=== PATIENT | female | born 1980 | race Hispanic/Latino ===

== ENCOUNTER 2019-10-28 18:08 | Inpatient (IN) | payer OTHER ==
[2019-10-28 19:10] VITALS: BMI 38.3
[2019-10-28] MEDS ORDERED: hydrALAZINE 20 MG/ML VIAL ONE (19:15)
[2019-10-28] MEDS ORDERED: Acetaminophen 500 MG TAB PO PRN (19:19)
[2019-10-28] MEDS ORDERED: hydrALAZINE 20 MG/ML VIAL SLOW IVP PRN ×2 (19:19→19:22)
[2019-10-28] MEDS ORDERED: Calcium Gluc 4.6 MEQ/10 ML (100 MG/ML) SLOW IVP PRN (19:19)
[2019-10-28] MEDS ORDERED: Ondansetron PF 4 MG/2 ML Vial IVP PRN (19:19)
[2019-10-28] MEDS ORDERED: Magnesium Sulfate 20 GM/WATER 500 ML BAG IVPB SCH (19:30)
[2019-10-28] MEDS ORDERED: Meclizine HCl 12.5 MG TAB PO PRN (19:38)
[2019-10-28 19:42] LABS: Hemoglobin 12.5 g/dL (12.0-16.0); Mean Corpuscular HGB CONC 35.2 g/dL (32.0-36.0); Mean Corpuscular Hemoglobin 30.3 pg (27.0-31.0); Mean Corpuscular Volume 85.9 fL (78.0-98.0); Mean Platelet Volume 9.5 fL (7.4-10.4); Platelet Count 224 thou/uL (130-400); RBC Distribution Width 14.2 % (11.5-14.5); Red Blood Cell (RBC) Count 4.15 mill/uL (4.20-5.40); White Blood Cell (WBC) Count 12.6 thou/uL (4.8-10.8)
[2019-10-28] MEDS: hydrALAZINE 20 MG/ML VIAL SLOW IVP PRN ×2 (19:44→20:08)
[2019-10-28] MEDS: Betamet Acet/Betamet Na Ph 30 MG/5 ML VIAL IM SCH (19:53)
[2019-10-28 20:03] LABS: ALT (SGPT) 10 U/L (8-55); AST (SGOT) 16 U/L (5-34); Albumin 3.2 g/dL (3.5-5.0); Alkaline Phosphatase 177 U/L (40-110); Anion Gap 16 mmol/L (10-20); BUN (Urea Nitrogen) 13 mg/dL (7.0-18.7); Bilirubin, Total 0.2 mg/dL (0.2-1.2); Calc. Creatinine Clearance 170 mL/min (70-130); Calcium 9.5 mg/dL (7.8-10.44); Carbon Dioxide 18 mmol/L (22-29); Chloride 109 mmol/L (98-107); Estimated GFR-MDRD Greater than 90; Globulin 3.7 g/dL (2.4-3.5); Glucose 110 mg/dL (70-105); Protein, Total 6.9 g/dL (6.0-8.3); Sodium 139 mmol/L (136-145)
[2019-10-28 20:18] LABS: Amphetamine Not Detected (NotDetected); Barbiturates Screen Not Detected (NotDetected); Benzodiazepine Screen Not Detected (NotDetected); Cocaine Metabolite Screen Not Detected (NotDetected); Medtox Control Line Valid? VALID (VALID); Medtox Reader # READER 1; Methadone Not Detected (NotDetected); Methamphetamine Not Detected (NotDetected); Opiate Screen Not Detected (NotDetected); Oxycodone Screen Not Detected (NotDetected); Phencyclidine (PCP) Not Detected (NotDetected); THC/Cannabinoid Screen Not Detected (NotDetected); Tricyclic Screen Not Detected (NotDetected)
[2019-10-28 20:21] LABS: HBSAg Index 0.15 S/CO (0-0.99); Hep B Surf Ag Non-Reactive S/CO (NonReactive); Syphilis Antibody Nonreactive (Nonreactive); Syphilis Antibody Index 0.03 S/CO (<1.00 Non-Reactive)
[2019-10-28] MEDS ORDERED: hydrALAZINE 20 MG/ML VIAL SLOW IVP SCH (20:30)
[2019-10-28] MEDS ORDERED: Labetalol HCl 100 MG/20 ML VIAL SLOW IVP SCH (20:30)
[2019-10-28] MEDS ORDERED: Labetalol HCl 100 MG/20 ML VIAL ONE (20:35)
[2019-10-28] MEDS: Labetalol HCl 100 MG/20 ML VIAL SLOW IVP SCH (22:01)
--- NOTE | 2019-10-28 22:23 | ULT ---
Exam: Limited OB ultrasound HISTORY: Evaluate for weight, presentation and amniotic fluid index TECHNIQUE: Limited OB ultrasound was performed FINDINGS: Presentation: Vertex heart tones: 139 bpm Amniotic fluid index: 21.5 cm Placenta: Anterior Cervix: 4.9 cm. No evidence of previa biometry: BPD 8.55 cm, 34 weeks 3 days Head circumference 30.81 cm, 34 weeks 3 days Abdominal circumference 29.49 cm, 33 weeks 2 days Femur length 6.36 cm, 32 weeks 2 days Estimated weight is 2260 g +/- 326 g Average age by sonography is 33 weeks 6 days IMPRESSION: 1. Single intrauterine gestation. Positive heart tones. Average age by sonography is 33 weeks 6 days. 2. Estimated weight is 2206 g +/- 326 g 3. Amniotic fluid index 21.5 cm. 4. Vertex presentation
[2019-10-28] MEDS ORDERED: Labetalol 100 MG TAB PO SCH (22:45)
[2019-10-28] MEDS: busPIRone HCl 10 MG TAB PO SCH (22:55)
[2019-10-29] MEDS: Magnesium Sulfate 20 gm/500 ml 20 GM/500 ML BAG IVPB SCH ×2 (04:34→14:10)
--- NOTE | 2019-10-29 07:43 | HP ---
PRIMARY OB: Dr. Jefry Gibson. CHIEF COMPLAINT: Elevated blood pressures. HISTORY OF PRESENT ILLNESS: The patient is a 39-year-old, G5, P3 female with an intrauterine at 33 weeks and 4 days, presenting to Labor and Delivery with elevated blood pressures from clinic. She denies headache, chest pain, or shortness of breath. She has some nausea that has been present with the . Denies any new rashes, hip problems, abdominal pain, vaginal bleeding, leakage of fluid, urinary urgency or frequency. She denies hip pains or muscle weakness. The patient reports that she has had preeclampsia with her last two or three deliveries requiring delivery at 34 and 36 weeks. PAST MEDICAL HISTORY: Negative. PAST SURGICAL HISTORY: She has had three prior C-sections. ALLERGIES: NO KNOWN DRUG ALLERGIES. MEDICATIONS: 1. vitamins. 2. Sertraline 100 mg daily. 3. BuSpar 10 mg in the morning. 4. Meclizine 25 mg daily. 5. Low-dose aspirin. OB LABS: Blood type is A positive. Antibody screen is negative. Hepatitis B surface antigen is negative. HIV is nonreactive in the 1st and 3rd trimester. She is rubella immune. REVIEW OF SYSTEMS: Per HPI. PHYSICAL EXAMINATION: VITAL SIGNS: Initial blood pressure on presentation 176/84, heart rate of 78, saturating 98% on room air, temperature 98.7. GENERAL: She appears to be in no acute distress. She is alert, oriented, cooperative, and pleasant to interact with. HEAD: Normocephalic, atraumatic. LUNGS: Clear to auscultation bilaterally. HEART: Has a regular rate and rhythm. ABDOMEN: Gravid, soft, nontender. EXTREMITIES: Nontender with minimal edema. She has two beats of clonus with DTRs. : Has been deferred. heart tracing shows the fetus with a baseline in the 150s with moderate long-term variability, positive 15 x 15 accelerations, no decelerations. Contractions are present and seem to be occurring about every 3 to 5 minutes, but not felt by the patient. The patient required a total of 25 of hydralazine and 100 of labetalol IV. She was also started on 30 mg of Procardia XL and was given 100 of labetalol p.o. since her admission. Blood pressures finally after repetitive dosing came down into the mild range after approximately 2-1/2 hours requiring an additional IV dose once since that time in addition to the p.o. medications. LABORATORY FINDINGS: White count is 12.6, hemoglobin is 12.5, hematocrit 35.6, and platelets of 224,000. Sodium 139, creatinine 0.6, glucose of 110, AST of 16, ALT of 10. Urine protein of 70. Drug screen negative. Ultrasound shows a fetus in vertex presentation, appropriate size for gestational age with an estimated weight of 2206 g, and the SAMANTHA of 21. ASSESSMENT AND PLAN: The patient is a 39-year-old female with an intrauterine at 33 weeks and 4 days with evidence of preeclampsia with severe features by blood pressure and proteinuria. The patient has required multiple IV medications for control of her blood pressure. It has now consistently been in the mild range. She is on magnesium for seizure prophylaxis and has been given betamethasone for lung maturity. Should we be able to continue with maintaining blood pressures in the appropriate range and with intolerance, I will anticipate a after 48 hours of the first dose. Dr. Gibson, her primary physician will be the managing physician. Fetus has a category 1 tracing. Job ID: [id number]
--- NOTE | 2019-10-29 08:15 | PDOC.LDPN ---
Labor & Delivery Progress Note - Subjective Subjective: comfortable - Objective Vital signs reviewed and normal: yes (normal to mild range BP) General: NAD, resting FHT: category 1 - Assessment (1) Preeclampsia Code(s): O14.90 - UNSPECIFIED PRE-ECLAMPSIA, UNSPECIFIED TRIMESTER Current Visit: Yes Status: Acute (2) Previous section Code(s): Z98.891 - HISTORY OF UTERINE SCAR FROM PREVIOUS SURGERY Current Visit : Yes Status: Acute (3) Advanced maternal age (AMA), 40 years or greater Code(s): SGT0957 - Current Visit: Yes Status: Acute Plan: continue plan of care -: A/P: 39yo w previous CS x 3, last 2 CS for severe preeclampsia- presented yesterday w severe range BP< on Magnesium now, Celestone x 1 given last night, 2nd dose pending today. Labs ordered for AM review pending. Discussed continue magnesium at this time. We discussed CS prior to 48 steroid benefit if worsening disease noted prior/IV antihypertensives needed again.
[2019-10-29] MEDS ORDERED: Labetalol 100 MG TAB PO SCH (09:00)
[2019-10-29 09:48] LABS: #Lymphocytes 1.6 thou/uL (1.20-3.40); #Monocytes 0.4 thou/uL (0.11-0.59); #Neutrophils 13.9 thou/uL (1.40-6.50); %Basophils 0.3 % (0.0-1.0); %Eosinophils 0.1 % (0.0-10.0); %Lymphocytes 9.9 % (21.0-51.0); %Monocytes 2.5 % (0.0-10.0); %Neutrophils 87.3 % (42.0-75.0); Hemoglobin 11.6 g/dL (12.0-16.0); Mean Corpuscular Hemoglobin 29.9 pg (27.0-31.0); Mean Corpuscular Volume 87.8 fL (78.0-98.0); Mean Platelet Volume 9.1 fL (7.4-10.4); Platelet Count 218 thou/uL (130-400); RBC Distribution Width 14.2 % (11.5-14.5); Red Blood Cell (RBC) Count 3.87 mill/uL (4.20-5.40)
[2019-10-29] MEDS: busPIRone HCl 5 MG TAB PO SCH (09:52)
[2019-10-29 10:13] LABS: ALT (SGPT) 9 U/L (8-55); AST (SGOT) 14 U/L (5-34); Alkaline Phosphatase 165 U/L (40-110); Anion Gap 14 mmol/L (10-20); BUN (Urea Nitrogen) 11 mg/dL (7.0-18.7); Bilirubin, Total 0.3 mg/dL (0.2-1.2); Calc. Creatinine Clearance 167 mL/min (70-130); Calcium 7.8 mg/dL (7.8-10.44); Carbon Dioxide 15 mmol/L (22-29); Chloride 107 mmol/L (98-107); Estimated GFR-MDRD Greater than 90; Globulin 3.3 g/dL (2.4-3.5); Glucose 154 mg/dL (70-105); Magnesium 5.1 mg/dL (1.6-2.6); Potassium 3.9 mmol/L (3.5-5.1); Protein, Total 6.3 g/dL (6.0-8.3); Sodium 132 mmol/L (136-145)
[2019-10-29] MEDS ORDERED: Meclizine HCl 12.5 MG TAB PO SCH (10:30)
--- NOTE | 2019-10-29 12:46 | PDOC.LDPN ---
Labor & Delivery Progress Note - Subjective Subjective: comfortable - Objective Vital signs reviewed and normal: yes General: NAD, resting FHT: category 1 - Assessment (1) Preeclampsia Code(s): O14.90 - UNSPECIFIED PRE-ECLAMPSIA, UNSPECIFIED TRIMESTER Current Visit: Yes Status: Acute (2) Previous section Code(s): Z98.891 - HISTORY OF UTERINE SCAR FROM PREVIOUS SURGERY Current Visit : Yes Status: Acute (3) Advanced maternal age (AMA), 40 years or greater Code(s): [id number] - Current Visit: Yes Status: Acute -: HD2 severe preeclampsia @ 33.4 weeks. Pt with BP stablized. Will continue magnesium through 24hours and will consider stopping magnesium with 2nd dose of celestone later this evening. If BP noted severe range after cessation of magnesium will move to delivery.
[2019-10-29 13:26] LABS: SARS-CoV-2 MS2 Positive; SARS-CoV-2 N Gene Negative; SARS-CoV-2 S Gene Negative; SARS-CoV-2 by NAA Not Detected (NotDetected); SARS-CoV-2 orf1ab Negative
[2019-10-29] MEDS: Betamet Acet/Betamet Na Ph 30 MG/5 ML VIAL IM SCH (19:53)
[2019-10-29] MEDS ORDERED: NIFEdipine XL 60 MG TAB PO SCH (21:00)
[2019-10-29] MEDS: busPIRone HCl 10 MG TAB PO SCH (21:51)
[2019-10-30] MEDS: NIFEdipine XL 30 MG TAB PO SCH ×2 (06:25→21:25)
[2019-10-30] MEDS ORDERED: Meclizine HCl 25 MG TAB PO SCH (09:00)
--- NOTE | 2019-10-30 10:07 | PDOC.LDPN ---
Labor & Delivery Progress Note - Subjective Subjective: comfortable, other (no HANKINS, TRANSPLANT REGISTERED NURSE sx or RUQ pain, good FM) - Objective Vital signs reviewed and normal: yes Abnormal vital signs: normal to mild range BP, no severe BP since mag was DC last night General: NAD, resting Other exam findings: reactive NST - Assessment (1) Preeclampsia Code(s): O14.90 - UNSPECIFIED PRE-ECLAMPSIA, UNSPECIFIED TRIMESTER Current Visit: Yes Status: Acute (2) Previous section Code(s): Z98.891 - HISTORY OF UTERINE SCAR FROM PREVIOUS SURGERY Current Visit : Yes Status: Acute (3) Advanced maternal age (AMA), 40 years or greater Code(s): [id number] - Current Visit: Yes Status: Acute Plan: continue plan of care -: A/P: 33.5 weeks, previous CS x 3 with strong PMHX of severe preeclampsia who presented w severe features on 10/27. Pt stablized w IV meds and magnesium sulfate. Magnesium was turned off at 1999 last night, she has continued to have normal to mild range BP with no TRANSPLANT REGISTERED NURSE sx. She will be 48 hours at steroid [facility] at 1999. Plan to continue close BP monitoring through 34 weeks in patient. If BP remain normal/mild range will plan for DC home and close FU/antepartum surveillance. If severe BP or features will deliver via RCS.
[2019-10-30] MEDS: busPIRone HCl 5 MG TAB PO SCH (11:16)
[2019-10-30] MEDS: Meclizine HCl 25 MG TAB PO SCH (11:16)
[2019-10-30] MEDS ORDERED: Calcium Gluc 4.6 MEQ/10 ML (100 MG/ML) SLOW IVP PRN (13:53)
[2019-10-30] MEDS ORDERED: Magnesium Sulfate 20 gm/500 ml 20 GM/500 ML BAG IVPB SCH (14:00)
[2019-10-30] MEDS ORDERED: Magnesium Sulfate 20 GM/WATER 500 ML BAG IVPB SCH (14:00)
[2019-10-30] MEDS ORDERED: Bicitra 30 ML UDCUP PO SCH (14:00)
[2019-10-30] MEDS: Labetalol HCl 100 MG/20 ML VIAL SLOW IVP SCH ×5 (14:00→17:14)
[2019-10-30] MEDS ORDERED: CEFAZOLIN 2 GM in Premix Bag 1 BAG IVPB SCH (14:00)
[2019-10-30] MEDS ORDERED: Ketorolac Tromethamine 30 MG/ML VIAL ONE (14:11)
[2019-10-30] MEDS ORDERED: Ondansetron PF 4 MG/2 ML Vial ONE (14:11)
[2019-10-30] MEDS ORDERED: Dexamethasone 4 mg/ml Vial ONE (14:11)
[2019-10-30] MEDS ORDERED: PHENYLEPHRINE-NS 100 MCG/ML 10 ML SYRINGE ONE (14:11)
[2019-10-30] MEDS ORDERED: Oxytocin 10 UNITS/ML VIAL ONE (14:11)
[2019-10-30] MEDS ORDERED: MORPHINE 5 MG/10 ML PF VIAL ONE (14:11)
--- NOTE | 2019-10-30 14:26 | PDOC.LDPN ---
Labor & Delivery Progress Note - Subjective Subjective: comfortable (denies sx PIH) - Objective Abnormal vital signs: severe range BP x 3 180s/90s General: NAD Uterine fundus: non tender FHT: category 1 -: 33w5d with PEC with severe features. S/p BMZ x 2, normal labs, asx, s/p inital Mag x 24h, now with recurrent severe BP requiring IV antihypertensive, dispo for RCS at this time. Plan of care discussed with family. All questions answered. Dr Gibson aware
[2019-10-30] MEDS ORDERED: Promethazine HCl 25 MG/ML VIAL IM PRN ×2 (14:27→15:29)
[2019-10-30] MEDS ORDERED: L&D-Morphine 4 MG/ML VIAL SLOW IVP PRN ×2 (14:27→15:29)
[2019-10-30] MEDS ORDERED: Ondansetron HCl/PF 4 MG/2 ML Vial IVP PRN ×2 (14:27→15:29)
[2019-10-30] MEDS ORDERED: Ondansetron PF 4 MG/2 ML Vial IVP PRN ×2 (14:27→15:29)
[2019-10-30] MEDS ORDERED: diphenhydrAMINE 50 MG/ML VIAL IVP PRN ×2 (14:27→15:29)
[2019-10-30] MEDS ORDERED: Naloxone HCl 0.4 mg/ml Vial IV PRN ×2 (14:27→15:29)
[2019-10-30] MEDS ORDERED: Ketorolac Tromethamine 30 MG/ML VIAL IVP PRN (14:27)
[2019-10-30] MEDS ORDERED: Naloxone HCl 0.4 mg/ml Vial IVP PRN ×4 (14:27→15:29)
[2019-10-30] MEDS ORDERED: Meperidine HCl/PF 25 MG/ML VIAL SLOW IVP PRN ×2 (14:27→15:29)
[2019-10-30] MEDS ORDERED: Promethazine HCl 25 MG SUPP PR PRN ×2 (14:27→15:29)
[2019-10-30] MEDS ORDERED: EPHEDRINE 25 MG/5 ML SYRINGE ONE (14:28)
[2019-10-30] MEDS ORDERED: Ketorolac Tromethamine 30 MG/ML VIAL IVP SCH (14:30)
[2019-10-30] MEDS ORDERED: Communication Order-Pharmacy FS SCH ×2 (14:30→15:30)
--- NOTE | 2019-10-30 15:21 | PDOC.OPDEL ---
OB Operative/Delivery Note Delivery Dr/Surgeon: Gucci Assist: Uziel, PGY3 Pre-Delivery Diagnosis: other (PIH with severe features) Procedure/Post Delivery Dx: repeat low transverse CS Weeks gestation: 33 Anesthesia: spinal - Findings A Sex: male - Additional Findings/Plan Placenta delivered: spontaneous findings: low transverse hysterotomy without extension, normal uterus, normal tubes, normal ovaries Estimated blood loss: 600cc Compilations/Other Findings: Breech presentation, NC x 1 Post delivery plan: routine recovery
[2019-10-30 15:23] LABS: Actual Bicarbonate (HCO3a) 23.8 mEq/L (22-28); Actual Bicarbonate (HCO3v) 22 mEq/L (22-28); Base Excess -4.2 mEq/L (-2.0 to +3.0); Base Excess (BEa) -3.5 mEq/L (-2.0 to +3.0); pH (Cord, venous) 7.33 (7.32-7.43)
[2019-10-30] MEDS ORDERED: HYDROmorphone 2 MG/ML VIAL SLOW IVP PRN (15:29)
[2019-10-30] MEDS ORDERED: Labetalol HCl 100 MG/20 ML VIAL SLOW IVP PRN (15:50)
[2019-10-30] MEDS ORDERED: NS / Oxytocin 40 units/1000ml 1,000 ML ONE (15:56)
[2019-10-30] MEDS: busPIRone HCl 10 MG TAB PO SCH (21:30)
--- NOTE | 2019-10-30 23:50 | OP ---
DATE OF PROCEDURE: 10/30/2019 PREOPERATIVE DIAGNOSES: 1. Intrauterine at 33 weeks and 5 days. 2. Preeclampsia with severe features. 3. Prior x3. POSTOPERATIVE DIAGNOSES: 1. Intrauterine at 33 weeks and 5 days. 2. Preeclampsia with severe features. 3. Prior x3. PROCEDURE PERFORMED: Repeat low-transverse section via Pfannenstiel skin incision. ANESTHESIA: Spinal. INSPECTING MACHINE ADJUSTER SURGEON: Chante Triplett MD. QUANTITIATIVE BLOOD LOSS: 412 mL. COMPLICATIONS: None. DRAINS: Forde catheter. PATHOLOGY: None. FINDINGS: Male in footling breech presentation. Clear amniotic fluid. Nuchal cord x1. Hysterotomy without extension. Normal uterus, ovaries, and tubes bilaterally. DESCRIPTION OF PROCEDURE: The patient was taken to the operating room, where spinal anesthesia was obtained without difficulty. The patient was prepped and draped in a sterile fashion in the dorsal supine position with leftward tilt. After ensuring adequacy of anesthesia, a Pfannenstiel skin incision was made and carried down to the underlying subcutaneous tissue with the knife. The fascia was nicked in the midline with the knife and carried laterally with the Alcantara scissors. The superior aspect of the fascia was tented with 2 Marielos's and dissected off the rectus with the Alcantara scissors. Perforating vessels were cauterized. The inferior aspect of the fascia was tented with 2 Marielos's and dissected off the rectus with the Alcantara's. The peritoneum was bluntly entered into and the rectus were divided in the midline with the Bovie and the incision was manually retracted. The Kyrie O retractor was placed. The vesicouterine peritoneum was incised with the Metzenbaum and a bladder flap was created. The lower uterine segment was incised in a transverse fashion and extended with a Borjas maneuver. Both feet were brought to the hysterotomy and delivered with standard breech maneuvers. The head was flexed and delivered with fundal pressure without difficulty. The infant's cord was clamped and the handed to awaiting Matias team. Cord gases and cord blood were obtained. The placenta was allowed to spontaneously deliver. The uterus was exteriorized, cleared of all clots and debris and placed back into the abdomen. The hysterotomy was repaired with #1 Monocryl in a running locking fashion, and an additional [id number] stitch was necessary for hemostasis on the left edge of the hysterotomy. Irrigation was performed of the pelvis and suctioned, and hemostasis was noted to be excellent. The Kyrie O retractor was removed and the rectus muscles were examined and hemostasis was achieved with the cautery. The fascia was reapproximated with 0 PDS x2 sutures with an excellent reapproximation. The subcutaneous tissue was irrigated and cauterized of any bleeders and reapproximated with a 2-0 plain gut in a running fashion. The skin was closed with the 4-0 Monocryl in a subcuticular fashion and Dermabond was applied as well as the pressure dressing. The patient tolerated the procedure well. Sponge, lap, and needle counts were correct x2. The patient was taken to recovery room in stable condition. The patient received Ancef 2 g prior to the procedure. Job ID: [id number]
[2019-10-31 05:22] LABS: Hemoglobin 11.2 g/dL (12.0-16.0); Mean Corpuscular HGB CONC 32.9 g/dL (32.0-36.0); Mean Platelet Volume 9.1 fL (7.4-10.4); Platelet Count 229 thou/uL (130-400); RBC Distribution Width 14.2 % (11.5-14.5); Red Blood Cell (RBC) Count 3.87 mill/uL (4.20-5.40); White Blood Cell (WBC) Count 16.2 thou/uL (4.8-10.8)
[2019-10-31] MEDS ORDERED: Acetaminophen 325 MG TAB PO PRN (05:31)
[2019-10-31] MEDS ORDERED: HYDROcodone/Acetaminophen 5/325 mg Tablet PO PRN (05:31)
[2019-10-31] MEDS ORDERED: Zolpidem Tartrate 5 MG TAB PO PRN (05:31)
[2019-10-31] MEDS ORDERED: Lanolin Ointment 7 GM TUBE TOP PRN (05:31)
[2019-10-31] MEDS ORDERED: Promethazine HCl 25 MG/ML VIAL IM PRN (05:31)
[2019-10-31] MEDS ORDERED: diphenhydrAMINE 25 MG CAP PO PRN (05:31)
[2019-10-31] MEDS ORDERED: Simethicone Chewable 80 MG TAB PO PRN (05:31)
[2019-10-31] MEDS ORDERED: hydrALAZINE 20 MG/ML VIAL SLOW IVP PRN (05:31)
[2019-10-31] MEDS ORDERED: Bisacodyl 10 MG SUPP PR PRN (05:31)
[2019-10-31] MEDS ORDERED: Ondansetron PF 4 MG/2 ML Vial IVP PRN (05:31)
[2019-10-31 05:43] LABS: ALT (SGPT) 9 U/L (8-55); AST (SGOT) 18 U/L (5-34); Albumin 2.9 g/dL (3.5-5.0); Alkaline Phosphatase 147 U/L (40-110); Anion Gap 12 mmol/L (10-20); BUN (Urea Nitrogen) 14 mg/dL (7.0-18.7); Bilirubin, Total 0.2 mg/dL (0.2-1.2); Calc. Creatinine Clearance 167 mL/min (70-130); Calcium 7.4 mg/dL (7.8-10.44); Carbon Dioxide 21 mmol/L (22-29); Chloride 106 mmol/L (98-107); Estimated GFR-MDRD Greater than 90; Globulin 3.3 g/dL (2.4-3.5); Glucose 108 mg/dL (70-105); Potassium 4.2 mmol/L (3.5-5.1); Protein, Total 6.2 g/dL (6.0-8.3); Sodium 135 mmol/L (136-145)
--- NOTE | 2019-10-31 08:19 | PDOC.PP ---
Post Progress Note Post Day #: 1 Subjective: no pih sx. PO intake tolerated: no Flatus: no Ambulation: no Vital Signs (12 hours) Pulse BP 10/30/19 21:25 77 170/88 H Weight Weight 190 lb - Physical Examination General: NAD Respiratory: non-labored breathing Abdominal: no distention, appropriately TTP Fundus firm & at: umb Extremities: negative homans (B) Neurological: no gross focal deficits Psychiatric: normal affect Result Diagrams: 10/31/19 05:13 10/31/19 05:13 Additional Labs: Post Labs Blood Type A POSITIVE 10/28/19 19:32 Hep Bs Antigen Non-Reactive S/CO (NonReactive) 10/28/19 19:32 - Assessment/Plan POD1 s/p RCS at 33w 2/2 PIH PIH- on mag, no sx mag toxicity or PIH. Labs wnl, cont mag x 24h, diuresing well. Incr procardia to 60mg daily Ok for reg diet as tolerated. Hgb 11.2 postop, doing well Check mag level Cont LICU care.
[2019-10-31] MEDS ORDERED: NIFEdipine XL 30 MG TAB PO SCH (08:30)
[2019-10-31] MEDS ORDERED: Adacel (T-DAP) 0.5 ML SYRINGE IM ONE (09:00)
[2019-10-31] MEDS: NIFEdipine XL 60 MG TAB PO SCH (09:02)
[2019-10-31] MEDS: Docusate Calcium (SURFAK) 240 MG CAP PO SCH ×2 (13:44→20:51)
[2019-10-31] MEDS: Prenatal Vitamin 1 TAB PO SCH (13:44)
[2019-10-31] MEDS: Ibuprofen 800 MG TAB PO SCH ×2 (13:45→20:51)
[2019-10-31] MEDS ORDERED: Labetalol HCl 100 MG/20 ML VIAL SLOW IVP PRN (14:04)
[2019-10-31] MEDS: Meclizine HCl 25 MG TAB PO SCH (14:11)
[2019-10-31] MEDS: busPIRone HCl 5 MG TAB PO SCH (14:19)
[2019-10-31] MEDS: Ferrous Sulfate 325 MG TAB PO SCH ×2 (14:19→20:35)
[2019-10-31] MEDS: busPIRone HCl 10 MG TAB PO SCH (21:37)
[2019-11-01] MEDS: Ibuprofen 800 MG TAB PO SCH ×3 (05:47→21:24)
--- NOTE | 2019-11-01 07:03 | PDOC.PP ---
Post Progress Note Post Day #: 2 Subjective: Doing well, no complaints this morning. Has not been to see the baby in NICU yet but plans to shower and go see baby later this morning. PO intake tolerated: yes Flatus: yes Ambulation: yes Vital Signs (12 hours) Temp Pulse Resp BP Pulse Ox 11/01/19 04:25 98.2 F 81 16 124/74 97 10/31/19 23:38 98.2 F 87 18 129/69 98 10/31/19 22:51 81 10/31/19 19:56 98.7 F 81 18 131/75 98 Weight Weight 190 lb - Physical Examination General: NAD Respiratory: non-labored breathing Abdominal: lochia (normal) Skin: CS incision dry & intact, no rash Neurological: no gross focal deficits Psychiatric: A&Ox3, normal affect Result Diagrams: 10/31/19 05:13 10/31/19 05:13 Additional Labs: Post Labs Blood Type A POSITIVE 10/28/19 19:32 Hep Bs Antigen Non-Reactive S/CO (NonReactive) 10/28/19 19:32 (1) Advanced maternal age (AMA), 40 years or greater Code(s): [id number] - Status: Acute (2) Preeclampsia Code(s): O14.90 - UNSPECIFIED PRE-ECLAMPSIA, UNSPECIFIED TRIMESTER Status: Acute (3) Previous section Code(s): Z98.891 - HISTORY OF UTERINE SCAR FROM PREVIOUS SURGERY Status: Acute - Assessment/Plan POD#2, now s/p MgSO4. BPs much improved since yesterday afternoon, no treatment required. Continue Labetalol. Anticipate d/c tomorrow.
[2019-11-01] MEDS: Ferrous Sulfate 325 MG TAB PO SCH (07:54)
[2019-11-01] MEDS: NIFEdipine XL 60 MG TAB PO SCH (08:25)
[2019-11-01] MEDS: Meclizine HCl 25 MG TAB PO SCH (08:25)
[2019-11-01] MEDS: Docusate Calcium (SURFAK) 240 MG CAP PO SCH ×2 (08:26→19:54)
[2019-11-01] MEDS: Prenatal Vitamin 1 TAB PO SCH (08:26)
[2019-11-01] MEDS: busPIRone HCl 5 MG TAB PO SCH (08:40)
[2019-11-01] MEDS: HYDROcodone/Acetaminophen 5/325 mg Tablet PO PRN (19:55)
[2019-11-01] MEDS: busPIRone HCl 10 MG TAB PO SCH (19:57)
[2019-11-02] MEDS: Ibuprofen 800 MG TAB PO SCH (05:21)
--- NOTE | 2019-11-02 07:01 | PDOC.PP ---
Post Progress Note Post Day #: 3 PO intake tolerated: yes Flatus: yes Ambulation: yes Vital Signs (12 hours) Temp Pulse Resp BP Pulse Ox 11/02/19 04:00 97.8 F 83 16 135/71 11/02/19 00:00 98.4 F 83 16 135/79 11/01/19 20:00 99.0 F 100 16 129/77 96 Weight Weight 190 lb - Physical Examination General: NAD Cardiovascular: no m/r/g, RRR Respiratory: clear to auscultation bilaterally, non-labored breathing Abdominal: + bowel sounds, lochia, no distention Extremities: negative homans (B) Skin: CS incision dry & intact Neurological: no gross focal deficits Psychiatric: A&Ox3, normal affect Result Diagrams: 10/31/19 05:13 10/31/19 05:13 Additional Labs: Post Labs Blood Type A POSITIVE 10/28/19 19:32 Hep Bs Antigen Non-Reactive S/CO (NonReactive) 10/28/19 19:32 - Assessment/Plan doing well dc home on procardia xl 60 fu w south in 7 days
[2019-11-02] MEDS: Prenatal Vitamin 1 TAB PO SCH (08:37)
[2019-11-02] MEDS: NIFEdipine XL 60 MG TAB PO SCH (08:37)
[2019-11-02] MEDS: Docusate Calcium (SURFAK) 240 MG CAP PO SCH (08:37)
[2019-11-02] MEDS: Meclizine HCl 25 MG TAB PO SCH (08:38)
[2019-11-02] MEDS: busPIRone HCl 5 MG TAB PO SCH (08:38)
[2019-11-02] MEDS: Ferrous Sulfate 325 MG TAB PO SCH (08:39)
[2019-11-02] MEDS: HYDROcodone/Acetaminophen 5/325 mg Tablet PO PRN (08:41)
[2019-11-02 09:13] VITALS: TEMP 98.2
[2019-11-02 12:57] VITALS: BP 150/85
== END 2019-11-02 12:58 | disposition home or self-care (01) | DRG 788 ==
LOC: L&D/OP 18:08 → L&D 19:19 → 3SW 10-31 20:31
PROVIDERS: ADMIT Obstetrics & Gynecology; ATTEND Obstetrics & Gynecology
PROC: 10D00Z1 Extraction of Products of Conception, Low, Open Approach (ICD-10-PCS; principal; 2019-10-30)
DX: O34.211 Maternal care for low transverse scar from previous cesarean delivery (principal); O14.14 Severe pre-eclampsia complicating childbirth; Z3A.33 33 weeks gestation of pregnancy; Z37.0 Single live birth; O32.8XX0 Maternal care for other malpresentation of fetus, not applicable or unspecified
CPT/HCPCS: 36415; 51702; 76815; 80053; 80306; 81003; 82805; 83735; 85025; 85027; 86780; 86850; 86900; 86901; 87340; 87635; 99285; J0360; J0690; J0702; J1100; J1885; J2274; J2405; J2590; J3475; U0003

== ENCOUNTER 2020-12-29 11:32 | Emergency (ER) | payer OTHER, SELFPAY ==
[2020-12-29 12:59] LABS: #Basophils 0.1 thou/uL (0.0-0.2); #Lymphocytes 2.1 thou/uL (1.20-3.40); #Monocytes 0.4 thou/uL (0.11-0.59); #Neutrophils 6.7 thou/uL (1.40-6.50); %Basophils 0.7 % (0.0-1.0); %Eosinophils 0.4 % (0.0-10.0); %Lymphocytes 22.8 % (21.0-51.0); %Monocytes 4.7 % (0.0-10.0); %Neutrophils 71.4 % (42.0-75.0); Hemoglobin 13.4 g/dL (12.0-16.0); Mean Corpuscular Hemoglobin 28.2 pg (27.0-31.0); Mean Platelet Volume 7.4 fL (7.4-10.4); Platelet Count 310 thou/uL (130-400); RBC Distribution Width 13.5 % (11.5-14.5); Red Blood Cell (RBC) Count 4.77 mill/uL (4.20-5.40); White Blood Cell (WBC) Count 9.4 thou/uL (4.8-10.8)
[2020-12-29 13:15] LABS: BHCG - Serum Negative (NEGATIVE); Pregs Control Background? CLEAR/WHITE (CLR/WHITE); Pregs Control Bar Appear? YES (CONTROL BAR)
[2020-12-29 13:16] LABS: ALT (SGPT) 21 U/L (8-55); AST (SGOT) 19 U/L (5-34); Albumin 4.5 g/dL (3.5-5.0); Alkaline Phosphatase 77 U/L (40-110); Anion Gap 13 mmol/L (10-20); BUN (Urea Nitrogen) 10 mg/dL (7.0-18.7); Bilirubin, Total 0.4 mg/dL (0.2-1.2); Calc. Creatinine Clearance 0 mL/min (70-130); Calcium 9.8 mg/dL (7.8-10.44); Carbon Dioxide 26 mmol/L (22-29); Chloride 104 mmol/L (98-107); Globulin 4.1 g/dL (2.4-3.5); Glucose 98 mg/dL (70-105); Potassium 3.5 mmol/L (3.5-5.1); Protein, Total 8.6 g/dL (6.0-8.3); Sodium 139 mmol/L (136-145)
[2020-12-29] MEDS ORDERED: Meclizine HCl 25 MG TAB ONE (13:59)
== END 2020-12-29 14:05 | disposition home or self-care (01) ==
LOC: ERS 11:32
DX: R42 Dizziness and giddiness (principal); F32.9 Major depressive disorder, single episode, unspecified; Z79.899 Other long term (current) drug therapy
CPT/HCPCS: 36415; 70450; 80053; 84703; 85025; 93005